=== PATIENT | male | born 1980 | race African-American/Black ===

== ENCOUNTER 2016-08-09 15:24 | Emergency (ER) | payer OTHER ==
--- NOTE | ~2016-08-09 | CR63 ---
[facility] A Service of [facility] [place] RADIOLOGY TEXT RESULTS PATIENT: VALERIE MONTGOMERY LOCATION: CFTX : 80 UNIT #: [id number] AGE: [address]: Jessie Colón SEX: M ORDER DR: [id number] [facility]. [place], [place] [address] [id number] MR#: [id number] Acc #: [id number] NAME: VALERIE MONTGOMERY : 1980 SEX: M STUDY DATE/TIME: 08/09/2016 14:39 UNIT: CFMI ROOM: STUDY DESCRIPTION: CR Chest 2 View Attending Physician: Jessie Colón P.A.-C. Ordering Physician: Jessie Colón P.A.-C. Primary Care Physician: Jabari Barreto M.D. MEDICAL IMAGING REPORT This report is preliminary unless electronic signature is present EXAM PA and lateral chest, two views, 08/09/16 COMPARISON STUDIES None CLINICAL HISTORY A 2-day history of cough with upper to midback pain. FINDINGS PA and lateral examination of the chest upright shows a good expansion of the parenchyma with a normal distribution of the pulmonary vascularity. There is no indication of congestion, effusion, infiltrate, tumor, or nodular density. The pleural reflections and diaphragmatic contours are normal. The cardiac silhouette and mediastinal anatomy is within normal limits. IMPRESSION Normal chest. Dictated by... Rex Hills M.D. THIS IS AN ELECTRONICALLY VERIFIED REPORT Rex Hills M.D. at 08/10/2016 5:03 PM TEV/ea TD: 08/09/2016 21:51 JOB #: [id number] [facility] A Service of [facility] [place] RADIOLOGY TEXT RESULTS PATIENT: VALERIE MONTGOMERY LOCATION: [place] : 80 UNIT #: [id number] AGE: [address]: Jessie Colón SEX: M ORDER DR: MEDICAL IMAGING REPORT Page 1 of 1 COPY
[2016-08-09 14:33] LABS: URINE SOURCE CLEAN CATCH
[2016-08-09 14:40] LABS: URINE APPEARANCE CLEAR; URINE BILIRUBIN NEG (NEG); URINE BLOOD NEG (NEG); URINE COLOR YELLOW; URINE GLUCOSE NEG (NEG); URINE KETONE NEG (NEG); URINE LEUKOCYTE ESTERASE 2+ (NEG); URINE NITRATE NEG (NEG); URINE PROTEIN NEG (NEG); URINE SPECIFIC GRAVITY 1.012 (1.003-1.035); URINE UROBILINOGEN 0.2 MG/DL (NEG)
[2016-08-09 14:41] LABS: CULTURE INDICATED? YES; U HYALINE CASTS AUWI 0-2 /[LPF]; URINE BACTERIA AUWI NEG (NEGATIVE); URINE SQUAMOUS EPITHELIAL CELL NONE SEEN /[HPF]
[2016-08-09 14:53] LABS: AMPHETAMINE NEG (NEG); BARBITURATES NEG (NEG); BENZODIAZEPINES NEG (NEG); COCAINE NEG (NEG); MARIJUANA POS (NEG); OPIATES NEG (NEG); TRICYCLIC ANTIDEPRESSANTS NEG (NEG); U METHADONE NEG (NEG)
[2016-08-12 02:18] LABS: CHLAMYDIA TRACH Not Detected (Not Detected); N GONOR Not Detected (Not Detected)
== END 2016-08-09 15:45 | disposition home or self-care (01) ==
LOC: CFTX 15:24
PROVIDERS: Physician Assistant
DX: Z20.2 Contact with and (suspected) exposure to infections with a predominantly sexual mode of transmission (principal); M54.5 Low back pain; Z91.09 Other allergy status, other than to drugs and biological substances
CPT/HCPCS: 71020; 80307; 81003; 87086; 87491; 87591; 96372; 99283; J0696; J1885

== ENCOUNTER 2016-08-26 23:52 | Emergency (ER) | payer OTHER ==
[2016-08-30 21:45] LABS: CHLAMYDIA TRACH Not Detected (Not Detected); N GONOR Not Detected (Not Detected)
== END 2016-08-27 00:09 | disposition home or self-care (01) ==
LOC: CFTX 23:52
PROVIDERS: Physician Assistant Medical
DX: Z20.2 Contact with and (suspected) exposure to infections with a predominantly sexual mode of transmission (principal); L30.9 Dermatitis, unspecified; Z91.018 Allergy to other foods
CPT/HCPCS: 87491; 87591; 99282